=== PATIENT | male | born 1985 | race Two or more races ===

== ENCOUNTER 2023-06-16 19:43 | Emergency (ER) | payer OTHER ==
[~2023-06-16] VITALS: Ht 188 cm; Wt 95.3 kg
[2023-06-16] MEDS ORDERED: NALOXONE HCL 0.4 MG/ML AMPUL IV ONE ×2 (20:00→22:15)
[2023-06-16] MEDS ORDERED: DEXTROSE 5 % IN WATER 1,000 ML IV ONE (20:00)
[2023-06-16] MEDS ORDERED: THIAMINE HCL 100 MG/ML 2 ML VIAL IV ONE (20:00)
[2023-06-16] MEDS ORDERED: FOLIC ACID 1 MG TABLET PO ONE (20:00)
[2023-06-16 20:51] LABS: HEMATOCRIT 38.9 % (39.0-48.0); HEMOGLOBIN 13.4 g/dL (13-16.00); MEAN CELL VOLUME 83.6 fL (80.0-100.00); MEAN CORPUSCULAR HEMOGLOBIN 28.7 pg (27.00-32.0); MEAN CORPUSCULAR HGB CONC 34.4 g/dl (32.0-36.0); PLATELET COUNT 213 K/uL (150-450); RED BLOOD COUNT 4.66 M/uL (4.00-6.00); RED CELL DISTRIBUTION WIDTH 13.3 % (11.5-14.5)
[2023-06-16 21:16] LABS: ALBUMIN 4.4 gm/dL (3.4-5.0); BILIRUBIN TOTAL 0.6 mg/dL (0.3-1.2); CALCIUM 9.1 mg/dL (8.5-10.1); CREATININE SERUM 1.08 mg/dL (0.70-1.30); GFR 76.52; GLOBULINA 3.5 G/DL (2.4-3.5); POTASSIUM 3.72 mEq/L (3.5-5.1); TOTAL PROTEIN 7.9 gm/dL (6.4-8.2)
== END 2023-06-17 00:55 | disposition home or self-care (01) ==
LOC: ER 19:43
PROVIDERS: General Practice
DX: F19.10 Other psychoactive substance abuse, uncomplicated (principal)